=== PATIENT | male | born 1960 | race Caucasian/White ===

== ENCOUNTER 2022-05-13 14:12 | Emergency (ER) | payer OTHER ==
[~2022-05-13] VITALS: Ht 172.7 cm; Wt 59.5 kg
[2022-05-13 14:30] VITALS: BP 139/94
[2022-05-13] MEDS ORDERED: IBUP-2213 PO (17:10)
[2022-05-13 17:20] VITALS: BP 122/88
== END 2022-05-13 17:10 | disposition home or self-care (01) ==
LOC: MED 14:12
DX: M70.21 Olecranon bursitis, right elbow (principal); I10 Essential (primary) hypertension; Z79.899 Other long term (current) drug therapy; Y93.89 Activity, other specified
CPT/HCPCS: 73080; 99283